=== PATIENT | male | born 1965 | race Two or more races ===

== ENCOUNTER 2019-07-23 14:39 | Emergency (ER) | payer OTHER ==
[~2019-07-23] VITALS: Ht 165.1 cm; Wt 63.5 kg
== END 2019-07-23 19:14 | disposition home or self-care (01) ==
LOC: ER 14:39
DX: S20.212A Contusion of left front wall of thorax, initial encounter (principal); S20.211A Contusion of right front wall of thorax, initial encounter; W18.39XA Other fall on same level, initial encounter; Y93.89 Activity, other specified; Y92.69 Other specified industrial and construction area as the place of occurrence of the external cause; Y99.8 Other external cause status